=== PATIENT | male | born 1955 | race American Indian/Alaskan Native ===

== ENCOUNTER 2021-12-24 21:39 | Inpatient (IN) | payer MEDICARE ==
[2021-12-24] MEDS ORDERED: SODIUM CHLORIDE 0.9% 1000 ML 1,000 ML IV ONE (21:57)
[2021-12-24] MEDS ORDERED: MORPHINE 4 MG/1 ML INJ IV ONE (21:57)
[2021-12-24] MEDS ORDERED: ONDANSETRON 4 MG/2 ML INJ IV ONE (21:57)
[2021-12-24 23:26] LABS: Basophils % (Auto) 0.3 % (0.0-1.8); Eosinophils # (Auto) 0.1 K/mm3 (0.0-0.4); Hematocrit 40.6 % (35.5-45.6); Hemoglobin 13.6 gm/dl (11.8-15.2); Lymphocytes # (Auto) 0.7 K/mm3 (1.2-5.4); Lymphocytes % (Auto) 7.4 % (13.4-35.0); Mean Corpuscular HGB Conc 33 % (32-34); Mean Corpuscular Volume 92 fl (84-94); Monocytes # (Auto) 0.7 K/mm3 (0.0-0.8); Monocytes % (Auto) 6.9 % (0.0-7.3); Platelet Count 324 K/mm3 (140-440); Red Blood Count 4.43 M/mm3 (3.65-5.03); Red Cell Distribution Width 13.5 % (13.2-15.2)
[2021-12-24 23:36] LABS: Alanine Aminotransferase 13 units/L (7-56); Albumin 4.2 g/dL (3.9-5); Blood Urea Nitrogen 6 mg/dL (9-20); Calcium 8.9 mg/dL (8.4-10.2); Hemolysis Index 18
[2021-12-24 23:37] LABS: BUN/Creatinine Ratio 9; Bilirubin,Direct < 0.2 mg/dL (0-0.2)
--- NOTE | 2021-12-25 01:01 | Cat Scan Report ---
CT ABDOMEN AND PELVIS WITH CONTRAST INDICATION / CLINICAL INFORMATION: pain. TECHNIQUE: Axial CT images were obtained through the abdomen and pelvis after IV contrast. All CT sc ans at this location are performed using CT dose reduction for ALARA by means of automated exposure c ontrol. COMPARISON: None available. FINDINGS: LOWER CHEST: Fibrotic changes/honeycombing noted bilaterally within the lower lobes as well as medial left upper lobe. No acute findings within the lower chest. LIVER: Mild hepatic steatosis suggested. Subcentimeter focus of hypoattenuation within segment IV and segment II favored to reflect small cysts, these are too small to further characterize. Additional s ubcentimeter focus of hypoattenuation present segment V. GALLBLADDER / BILE DUCTS: No significant abnormality. Biliary ducts grossly unremarkable. SPLEEN: No significant abnormality. PANCREAS: Main pancreatic duct is upper limits of normal in size. The pancreas demonstrates no focal mass. ADRENALS: No significant abnormality. KIDNEYS/URETERS: 1-2 mm stone lower pole left kidney. Kidneys are otherwise unremarkable. STOMACH / DUODENUM / SMALL BOWEL: Right inguinal hernia is demonstrated containing a moderate amount of bowel. Additional fluid present within the hernia sac. The contained bowel maintains wall enhancem ent. There may be minimal fat stranding at the level of the inguinal ligament suggesting may be early incarceration. Proximal small bowel is upper limits of normal in size to minimally distended. COLON: Moderate stool throughout APPENDIX: No significant abnormality. PERITONEUM: No free air or free fluid are present within the abdomen or pelvis. LYMPH NODES: No significant adenopathy. AORTA / ARTERIES: No significant abnormality. IVC / VEINS: No significant abnormality. URINARY BLADDER: No significant abnormality. REPRODUCTIVE ORGANS: No significant abnormality. SKELETAL SYSTEM: Degenerative changes of the lumbar spine appear moderate. No acute osseous findings. Pars defect at L3-4. ADDITIONAL ABDOMINAL/PELVIC FINDINGS: None. IMPRESSION: 1. Early incarceration of right inguinal hernia without devascularization of bowel wall. Proximal obs tructive changes of the small bowel additionally are present. Signer Name: Prateek Fierro II, MD Signed: 12/25/2021 12:56 AM Workstation Name: [id number]
--- NOTE | 2021-12-25 01:37 | Emergency Department Report ---
ED Abdominal Pain HPI - General Chief Complaint: Abdominal Pain Stated Complaint: HERNIA PUI?: No Time Seen by Provider: 12/24/21 21:55 Source: patient, EMS Mode of arrival: Stretcher Limitations: No Limitations - History of Present Illness Initial Comments: HERNIA PAIN AND SWELLING had hernia for few years but today is worse nausea and vomiting -: Gradual, hour(s) Location: R flank Severity: severe Severity scale (0 -10): 10 Quality: aching Worsens With: nothing - Related Data Allergies Allergy/AdvReac Type Severity Reaction Status Date / Time No Known Allergies Allergy Verified 12/24/21 22:07 ED Review of Systems ROS: Stated complaint: HERNIA Other details as noted in HPI Constitutional: denies: chills, fever Eyes: denies: eye pain, eye discharge, vision change ENT: denies: ear pain, throat pain Respiratory: denies: cough, shortness of breath, wheezing Cardiovascular: denies: chest pain, palpitations Endocrine: no symptoms reported Gastrointestinal: denies: abdominal pain, nausea, diarrhea Genitourinary: denies: urgency, dysuria Musculoskeletal: denies: back pain, joint swelling, arthralgia Skin: denies: rash, lesions Neurological: denies: headache, weakness, paresthesias Psychiatric: denies: anxiety, depression Hematological/Lymphatic: denies: easy bleeding, easy bruising ED Past Medical Hx - Past Medical History Previous Medical History?: No Hx Hypertension: No ED Physical Exam - General Limitations: No Limitations General appearance: alert, in distress - Head Head exam: Present: atraumatic, normocephalic - Eye Eye exam: Present: normal appearance - ENT ENT exam: Present: mucous membranes moist - Neck Neck exam: Present: normal inspection - Respiratory Respiratory exam: Present: normal lung sounds bilaterally. Absent: respiratory distress - Cardiovascular Cardiovascular Exam: Present: regular rate, normal rhythm. Absent: systolic murmur, diastolic murmur, rubs, gallop - GI/Abdominal GI/Abdominal exam: Present: normal bowel sounds (`), hernia (Right ingionao scrotal hernia , firm tender with no impulse on cough ) - Rectal Rectal exam: Present: deferred - Extremities Exam Extremities exam: Present: normal inspection - Back Exam Back exam: Present: normal inspection - Neurological Exam Neurological exam: Present: alert, oriented X3 - Psychiatric Psychiatric exam: Present: normal affect, normal mood - Skin Skin exam: Present: warm, dry, intact, normal color. Absent: rash ED Course Vital Signs 12/24/21 21:56 Temperature 98 F Pulse Rate 68 Respiratory 16 Rate Blood Pressure 126/74 [Right] O2 Sat by Pulse 98 Oximetry ED Medical Decision Making - Lab Data Result diagrams: 12/24/21 22:51 12/24/21 22:51 Critical care attestation.: If time is entered above; I have spent that time in minutes in the direct care of this critically ill patient, excluding procedure time. ED Disposition Clinical Impression: Inguinal hernia with strangulation Disposition: ADMITTED INPATIENT Is pt being admited?: Yes Does the pt Need Aspirin: No Condition: Stable
[2021-12-25] MEDS ORDERED: ERTAPENEM 1 GM in SODIUM CHLORIDE 0.9% 50 ML IV ONE (01:38)
[2021-12-25] MEDS ORDERED: ONDANSETRON 4 MG/2 ML INJ IV PRN (02:53)
[2021-12-25] MEDS ORDERED: MORPHINE 4 MG/1 ML INJ IV PRN (02:53)
[2021-12-25] MEDS ORDERED: MORPHINE 2 MG/1 ML INJ IV PRN (02:53)
[2021-12-25] MEDS ORDERED: ACETAMINOPHEN 325 MG TAB PO PRN (02:53)
--- NOTE | 2021-12-25 03:00 | History and Physical Report ---
History of Present Illness Date of examination: 12/25/21 Date of admission: 12/25/2021 Chief complaint: Abdominal Pain History of present illness: 66-year-old -[place] male with no significant past medical history except for right inguinal hernia which has been present for a few years. Hernia has been reducible on most occasions. However, over the past few days he has been having significant pain in the right groin. Hernia has gotten swollen and has become larger and unreducible. Patient has had some nausea and vomiting. He denies any diarrhea, no chest pain or shortness of breath, no fever or chills. Work-up in the emergency room, lab did not reveal any significant abnormality. CT of the abdomen and pelvis revealed early incarceration of the right inguinal hernia without devascularization of the bowel wall. Proximal obstructive changes of the small bowel additionally are present. General surgeon on-call has been consulted and notified by the ER physician. Patient has received IV analgesic medication, IV antibiotics and IV fluid. Past History Past Medical History: No medical history Past Surgical History: Other (Abdominal Surgery) Social history: no significant social history Family history: no significant family history Medications and Allergies Allergies Allergy/AdvReac Type Severity Reaction Status Date / Time No Known Allergies Allergy Verified 12/24/21 22:07 Review of Systems Constitutional: no fever, no chills Ears, nose, mouth and throat: no nasal congestion, no sore throat Cardiovascular: no chest pain, no palpitations Respiratory: no cough, no shortness of breath Gastrointestinal: abdominal pain, nausea, vomiting, no diarrhea Genitourinary Male: no dysuria, no hematuria, no flank pain Musculoskeletal: no neck pain, no low back pain Integumentary: no rash, no pruritis Neurological: no headaches, no confusion Psychiatric: no anxiety, no depression Endocrine: no polyphagia, no polydipsia, no polyuria, no nocturia Exam - Constitutional Vitals: Temp Pulse Resp BP Pulse Ox 98 F 68 16 126/74 98 12/24/21 21:56 12/24/21 21:56 12/24/21 21:56 12/24/21 21:56 12/24/21 21:56 General appearance: Present: no acute distress, well-nourished - EENT Eyes: Present: PERRL, EOM intact. Absent: scleral icterus ENT: hearing intact, clear oral mucosa, dentition normal - Neck Neck: Present: supple, normal ROM - Respiratory Respiratory effort: normal Respiratory: bilateral: CTA - Cardiovascular Rhythm: regular Heart Sounds: Present: S1 & S2. Absent: gallop, systolic murmur, diastolic murmur, rub, click - Extremities Extremities: no ischemia, pulses intact, pulses symmetrical, No edema, normal temperature, normal color, Full ROM Peripheral Pulses: within normal limits - Abdominal General gastrointestinal: Present: soft, non-tender, tender, normal bowel sounds, hernia (Right reducible inguinal hernia,Mildly tender to touch.), other (Scar of old surgery in midline.). Absent: non-distended - Integumentary Integumentary: Present: clear, warm, dry, normal turgor. Absent: rash - Musculoskeletal Musculoskeletal: strength equal bilaterally - Psychiatric Psychiatric: appropriate mood/affect, intact judgment & insight, memory intact, cooperative - Neurologic Neurologic: CNII-XII intact, no focal deficits, moves all extremities Results - Labs CBC & Chem 7: 12/24/21 22:51 12/24/21 22:51 Labs: Abnormal lab results 12/24/21 12/24/21 Range/Units 22:51 22:51 Lymph % (Auto) 7.4 L (13.4-35.0) % Lymph # (Auto) 0.7 L (1.2-5.4) K/mm3 Seg Neutrophils % 84.4 H (40.0-70.0) % Seg Neutrophils # 8.5 H (1.8-7.7) K/mm3 BUN 6 L (9-20) mg/dL Creatinine 0.7 L (0.8-1.3) mg/dL Glucose 101 H (75-100) mg/dL Total Creatine Kinase 256 H (55-170) units/L Assessment and Plan Assessment: 1.Abdominal Pain 2.Right Inguinal hernia- reducible Plan: 1. Patient admitted and placed on IV fluid and analgesic medication. He will be kept NPO. 2. Consult placed to general surgeon for evaluation and recommendations. DVT Prophylaxis: Sequential compression device Code Status: Full Code
--- NOTE | 2021-12-25 09:28 | Consultation ---
History of Present Illness Consult date: 12/25/21 Reason for consult: abdominal pain - History of present illness History of present illness: 66-year-old -[place] male with no significant past medical history except for right inguinal hernia which has been present for a few years. Hernia has been reducible on most occasions. However, over the past few days he has been having significant pain in the right groin. 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 He has a low midline incision on physical exam. He has never had a colonosocpy in his adult life. He does not have a fh for crc. Hernia has gotten swollen and has become larger and unreducible. Patient has had some nausea and vomiting. He denies any diarrhea, no chest pain or shortness of breath, no fever or chills. Work-up in the emergency room, lab did not reveal any significant abnormality. CT of the abdomen and pelvis revealed early incarceration of the right inguinal hernia without devascularization of the bowel wall. Proximal obstructive changes of the small bowel additionally are present. General surgeon been consulted to manage the hernia and sbo. Patient has received IV analgesic medication, IV antibiotics and IV fluid. Thru the night pt noted that the hernia reduced. He is constipated however. His pain is better there is no further nausea he may have passed gas. Past History Past Medical History: No medical history Past Surgical History: Other (Abdominal Surgery) Social history: no significant social history Family history: no significant family history Medications and Allergies Allergies Allergy/AdvReac Type Severity Reaction Status Date / Time No Known Allergies Allergy Verified 12/24/21 22:07 Home Medications Medication Instructions Recorded Confirmed Last Taken Type Docusate Sodium [Colace] 300 mg PO DAILY PRN 12/25/21 12/25/21 12/24/21 History Ibuprofen [Motrin] 800 mg PO Q812H PRN 12/25/21 12/25/21 12/24/21 18:00 History Mv-Mins/Folic Acid/Guarana/Caf 1 tab PO QDAY 12/25/21 12/25/21 12/24/21 History [One Daily Tablet] Active Meds: Active Medications Acetaminophen (Acetaminophen 325 Mg Tab) 650 mg PO Q4H PRN PRN Reason: Pain MILD(1-3)/Fever >100.5/MCCARTHY Morphine Sulfate (Morphine 2 Mg/1 Ml Inj) 2 mg IV Q4H PRN PRN Reason: Pain, Moderate (4-6) Morphine Sulfate (Morphine 4 Mg/1 Ml Inj) 4 mg IV Q4H PRN PRN Reason: Pain , Severe (7-10) Ondansetron HCl (Ondansetron 4 Mg/2 Ml Inj) 4 mg IV Q8H PRN PRN Reason: Nausea And Vomiting Sodium Chloride (Sodium Chloride 0.9% 10 Ml Flush Syringe) 10 ml IV BID STEFANIE Sodium Chloride (Sodium Chloride 0.9% 10 Ml Flush Syringe) 10 ml IV PRN PRN PRN Reason: LINE FLUSH Exam Vital Signs Temp Pulse Resp BP Pulse Ox 98 F 68 16 126/74 98 12/24/21 21:56 12/24/21 21:56 12/24/21 21:56 12/24/21 21:56 12/24/21 21:56 - General physical appearance Positive: well developed, no distress - Eyes Positive: PERRL - Neck Positive: no masses, no bruits, trachea midline - Respiratory Positive: normal expansion - Cardiovascular Rhythm: regular - Extremities Extremities: no ischemia, No edema - Abdomen Abdomen: Present: soft, bowel sounds normal, other (Well-healed midline incision without evidence of ventral hernia in the lower half of the abdomen). Absent: tender, distended, masses, rebound, guarding, rigid - Neurologic Neurologic: alert and oriented to time, place and person, motor strength and sensation are grossly intact, CN II-XII intact Results - Labs 12/24/21 22:51 12/24/21 22:51 Abnormal lab results 12/24/21 12/24/21 Range/Units 22:51 22:51 Lymph % (Auto) 7.4 L (13.4-35.0) % Lymph # (Auto) 0.7 L (1.2-5.4) K/mm3 Seg Neutrophils % 84.4 H (40.0-70.0) % Seg Neutrophils # 8.5 H (1.8-7.7) K/mm3 BUN 6 L (9-20) mg/dL Creatinine 0.7 L (0.8-1.3) mg/dL Glucose 101 H (75-100) mg/dL Total Creatine Kinase 256 H (55-170) units/L Diabetes panel 12/24/21 Range/Units 22:51 Sodium 141 (137-145) mmol/L Potassium 4.1 (3.6-5.0) mmol/L Chloride 104.6 (98-107) mmol/L Carbon Dioxide 25 (22-30) mmol/L BUN 6 L (9-20) mg/dL Creatinine 0.7 L (0.8-1.3) mg/dL Glucose 101 H (75-100) mg/dL Calcium 8.9 (8.4-10.2) mg/dL AST 19 (5-40) units/L ALT 13 (7-56) units/L Alkaline Phosphatase 76 (35-129) units/L Total Protein 7.3 (6.3-8.2) g/dL Albumin 4.2 (3.9-5) g/dL Calcium panel 12/24/21 Range/Units 22:51 Calcium 8.9 (8.4-10.2) mg/dL Albumin 4.2 (3.9-5) g/dL Pituitary panel 12/24/21 Range/Units 22:51 Sodium 141 (137-145) mmol/L Potassium 4.1 (3.6-5.0) mmol/L Chloride 104.6 (98-107) mmol/L Carbon Dioxide 25 (22-30) mmol/L BUN 6 L (9-20) mg/dL Creatinine 0.7 L (0.8-1.3) mg/dL Glucose 101 H (75-100) mg/dL Calcium 8.9 (8.4-10.2) mg/dL Adrenal panel 12/24/21 Range/Units 22:51 Sodium 141 (137-145) mmol/L Potassium 4.1 (3.6-5.0) mmol/L Chloride 104.6 (98-107) mmol/L Carbon Dioxide 25 (22-30) mmol/L BUN 6 L (9-20) mg/dL Creatinine 0.7 L (0.8-1.3) mg/dL Glucose 101 H (75-100) mg/dL Calcium 8.9 (8.4-10.2) mg/dL Total Bilirubin 0.30 (0.1-1.2) mg/dL AST 19 (5-40) units/L ALT 13 (7-56) units/L Alkaline Phosphatase 76 (35-129) units/L Total Protein 7.3 (6.3-8.2) g/dL Albumin 4.2 (3.9-5) g/dL Assessment and Plan Pt with spontaneous reduction of incarcerated small bowel. Plan to advance to [facility] now and potentially discharge on full liquids. Pt should also try a bowel prep, beginning with TWE to address his constipation. Plan to return for definitive repair as an outpt next week on the robotic platform.
[2021-12-25] MEDS ORDERED: MAGNESIUM CITRATE 300 ML ORAL LIQD PO ONE (11:47)
--- NOTE | 2021-12-25 11:49 | Event Note ---
Date: 12/25/21 Patient seen at bedside. He reports being pain-free and reduction of his hernia. He has not had any bowel movement since he has been here. He denies nausea, vomiting and has passed flatus. He was seen by general surgery who recommended outpatient repair. We will observe patient overnight to see if he can tolerate an oral diet and passing bowel movement prior to discharge.
[2021-12-25] MEDS: POLYETHYLENE GLYCOL 3350 17 GM POWDER PO SCH (12:47)
[2021-12-25] MEDS: LACTATED RINGERS 1,000 ML IV SCH (12:47)
[2021-12-26 04:42] VITALS: BP 125/88
[2021-12-26 07:06] LABS: Basophils # (Auto) 0.1 K/mm3 (0.0-0.1); Basophils % (Auto) 0.4 % (0.0-1.8); Eosinophils # (Auto) 0.1 K/mm3 (0.0-0.4); Eosinophils % (Auto) 0.4 % (0.0-4.3); Hematocrit 39.9 % (35.5-45.6); Hemoglobin 13.1 gm/dl (11.8-15.2); Lymphocytes # (Auto) 1.5 K/mm3 (1.2-5.4); Lymphocytes % (Auto) 7.8 % (13.4-35.0); Mean Corpuscular HGB Conc 33 % (32-34); Mean Corpuscular Volume 91 fl (84-94); Monocytes # (Auto) 1.6 K/mm3 (0.0-0.8); Monocytes % (Auto) 8.5 % (0.0-7.3); Platelet Count 305 K/mm3 (140-440); Red Blood Count 4.38 M/mm3 (3.65-5.03); Red Cell Distribution Width 13.8 % (13.2-15.2)
[2021-12-26 07:24] LABS: Blood Urea Nitrogen 7 mg/dL (9-20); Calcium 8.8 mg/dL (8.4-10.2); Hemolysis Index 5
[2021-12-26 07:27] LABS: BUN/Creatinine Ratio 10
--- NOTE | 2021-12-26 08:30 | Progress Note ---
Assessment and Plan Pt with spontaneous reduction of incarcerated small bowel. Plan to advance to [facility] now and potentially discharge on full liquids. Pt with good response to bowel prep he agrees to go home today. Plan to return for definitive repair as an outpt next week on the robotic platform. Subjective Date of service: 12/26/21 Patient Reports: Positive: no new complaints, still having pain, no bowel movement (Patient with bowel movement today he continues to be pain-free. Okay to discharge patient on a soft diet.) Objective Vital Signs - 12hr 12/25/21 12/26/21 22:00 04:14 Temperature 97.9 F 98.7 F Pulse Rate 87 74 Respiratory 20 18 Rate Blood Pressure 125/88 Blood Pressure 133/92 [Right] O2 Sat by Pulse 98 94 Oximetry - Labs 12/26/21 06:49 12/26/21 06:49 Diabetes panel 12/26/21 Range/Units 06:49 Sodium 134 L (137-145) mmol/L Potassium 3.6 (3.6-5.0) mmol/L Chloride 99.9 (98-107) mmol/L Carbon Dioxide 22 (22-30) mmol/L BUN 7 L (9-20) mg/dL Creatinine 0.7 L (0.8-1.3) mg/dL Glucose 97 (75-100) mg/dL Calcium 8.8 (8.4-10.2) mg/dL Calcium panel 12/26/21 Range/Units 06:49 Calcium 8.8 (8.4-10.2) mg/dL Pituitary panel 12/26/21 Range/Units 06:49 Sodium 134 L (137-145) mmol/L Potassium 3.6 (3.6-5.0) mmol/L Chloride 99.9 (98-107) mmol/L Carbon Dioxide 22 (22-30) mmol/L BUN 7 L (9-20) mg/dL Creatinine 0.7 L (0.8-1.3) mg/dL Glucose 97 (75-100) mg/dL Calcium 8.8 (8.4-10.2) mg/dL Adrenal panel 12/26/21 Range/Units 06:49 Sodium 134 L (137-145) mmol/L Potassium 3.6 (3.6-5.0) mmol/L Chloride 99.9 (98-107) mmol/L Carbon Dioxide 22 (22-30) mmol/L BUN 7 L (9-20) mg/dL Creatinine 0.7 L (0.8-1.3) mg/dL Glucose 97 (75-100) mg/dL Calcium 8.8 (8.4-10.2) mg/dL
[2021-12-26] MEDS: LACTATED RINGERS 1,000 ML IV SCH (08:52)
--- NOTE | 2021-12-26 09:20 | Discharge Summary ---
Providers - Providers Date of Admission: 12/25/21 02:53 Date of discharge: 12/26/21 Attending physician: CHOLO SAMPSON MD 12/25/21 01:39 Consult to Physician [CONS] Stat Comment: Dr. Roberts spoke with Dr. Cisneros @ [phone] Consulting Provider: JON CISNEROS Physician Instructions: Reason For Exam: incarcerated hernia Primary care physician: TREVER ROMAN Hospitalization Reason for admission: incarcerated hernia Condition: Stable Hospital course: Patient is a 66-year-old male with history of right inguinal hernia who presented with severe groin pain and constipation. CT of the abdomen pelvis revealed early incarceration of the right inguinal hernia. General surgery was consulted and the patient hernia reduced spontaneously. Patient was able to tolerate diet and have bowel movements. He was recommended for outpatient repair of hernia early next week. Patient made aware and discharged home. Disposition: 01 HOME / SELF CARE / HOMELESS Final Discharge Diagnosis (Prints w/discharge instructions): Incarcerated right inguinal hernia, resolved. Abdominal pain Time spent for discharge: 45 minutes Core Measure Documentation - Palliative Care Palliative Care/ Comfort Measures: Not Applicable - Core Measures Any of the following diagnoses?: none Exam - Physical Exam Narrative exam: GENERAL: Thin male. Resting in bed in no acute distress. HEENT: Normocephalic. Atraumatic. NECK: Supple. CHEST/LUNGS: CTAB on room air HEART/CARDIOVASCULAR: RRR. No murmur, rubs or gallops appreciated. ABDOMEN: +BS. NT/ND. : R groin w/ hernia reduced. NT to palpation. SKIN: No rashes noted. NEURO: No focal motor deficit. Follows all commands. MUSCULOSKELETAL: No joint effusion EXTREMITIES: No cyanosis, clubbing or edema. PSYCH: Cooperative. - Constitutional Vitals: Temp Pulse Resp BP Pulse Ox 98.7 F 74 18 125/88 94 12/26/21 04:14 12/26/21 04:14 12/26/21 04:14 12/26/21 04:14 12/26/21 04:14 Plan Care Plan Goals: Please call to schedule an appointment with Dr. Cisneros for repair of your hernia for , January 01. Until that time please resume a full liquid diet. If you have return of your symptoms, please report back to the emergency department. Follow up with: TREVER ROMAN MD [Primary Care Provider] - 7 Days JON CISNEROS MD [Staff Physician] - 01/01/22 Prescriptions: polyethylene glycoL 3350 [Miralax 3350] 17 gm PO QDAY 30 Days #30 [email or web address]
[2021-12-26] MEDS: POLYETHYLENE GLYCOL 3350 17 GM POWDER PO SCH (09:24)
== END 2021-12-26 11:51 | disposition home or self-care (01) | DRG 395 ==
LOC: ED 21:39 → 3A 12-25 02:53
PROVIDERS: ADMIT Internal Medicine Geriatric Medicine; ATTEND Student in an Organized Health Care Education/Training Program
DX: K40.30 Unilateral inguinal hernia, with obstruction, without gangrene, not specified as recurrent (principal)
CPT/HCPCS: 36415; 74177; 80048; 80076; 82150; 82550; 83690; 85025; 86140; 96365; 96375; 99285; 99406; G0378; J1335; J2270; J2405; J7030; J7120; Q9967

== ENCOUNTER 2022-01-01 06:39 | Day surgery (SDC) | payer MEDICARE ==
[~2022-01-01 06:39] MED LIST: ceFAZolin/STERILE WATER 2 GM/20 ML SYRINGE IV SCH
[2022-01-01] MEDS ORDERED: LIDOCAINE 1%/EPINEPHRINE 1:100,000 VIAL (20 ML) INFILTRATI ONE ×2 (07:36→10:47)
[2022-01-01] MEDS ORDERED: BUPIVACAINE/PF (0.5%) 5 MG/1 ML 30 ML VIAL INFILTRATI ONE ×2 (07:36→10:46)
--- NOTE | 2022-01-01 07:41 | Anesthesia Day of Surgery ---
Anesthesia Day of Surgery - Day of Surgery Patient Examined: Yes Patient H&P Reviewed: Yes Patient is NPO: Yes
--- NOTE | 2022-01-01 07:42 | Anesthesia Consultation ---
Anesthesia Consult and Med Hx Date of service: 01/01/22 - Airway Anesthetic Teeth Evaluation: Partials ROM Head & Neck: Adequate Mental/Hyoid Distance: Adequate Mallampati Class: Class II Intubation Access Assessment: Good - Pre-Operative Health Status ASA Pre-Surgery Classification: ASA2 Proposed Anesthetic Plan: General - Pulmonary Hx Smoking: Yes (SMOKES 2 CIGARETTES/DAY) Hx Asthma: No COPD: No Hx Pneumonia: No Hx Sleep Apnea: No - Cardiovascular System Hx Hypertension: Yes (CONTROLLED WITH MEDICATION) - Central Nervous System Hx Psychiatric Problems: No - Hematic Hx Anemia: No Hx Sickle Cell Disease: No - Other Systems Hx Alcohol Use: Yes (6 PACK BEER/WEEK) Hx Substance Use: Yes (SMOKES MARIJUANA) Hx Cancer: No Hx Obesity: No
[2022-01-01] MEDS ORDERED: LACTATED RINGERS 1,000 ML IV SCH (08:00)
[2022-01-01] MEDS ORDERED: ONDANSETRON 4 MG/2 ML INJ IV NR (08:00)
[2022-01-01] MEDS ORDERED: ACETAMINOPHEN 325 MG TAB PO NR (08:00)
[2022-01-01] MEDS ORDERED: MAGNESIUM OXIDE 400 MG TAB PO NR (08:00)
[2022-01-01] MEDS ORDERED: CELECOXIB 200 MG CAP PO NR (08:00)
[2022-01-01] MEDS ORDERED: HYDROmorphone 0.5 MG/0.5 ML INJ IV PRN (08:00)
[2022-01-01] MEDS ORDERED: LIDOCAINE MPF (2%) 20 MG/1 ML VIAL 5 ML ONE (09:42)
[2022-01-01] MEDS ORDERED: ROCURONIUM 50 MG/5 ML INJ IV ONE (09:42)
[2022-01-01] MEDS ORDERED: fentaNYL 100 MCG/2 ML INJ ONE (09:42)
[2022-01-01] MEDS ORDERED: PHENYLEPHRINE/NS 1,000 MCG/10 ML SYRINGE (OR USE) IV ONE (09:42)
[2022-01-01] MEDS ORDERED: propofoL 200 MG/20 ML VIAL IV ONE (09:43)
[2022-01-01] MEDS ORDERED: dexAMETHasone 20 MG/5 ML VIAL ONE (09:44)
[2022-01-01] MEDS ORDERED: ONDANSETRON 4 MG/2 ML INJ ONE (09:44)
[2022-01-01] MEDS ORDERED: ePHEDrine SULFATE 50 MG/1 ML INJ ONE (10:15)
[2022-01-01] MEDS ORDERED: SODIUM CHLORIDE 0.9% IRR 1,500 ML BOTTLE IR ONE (10:47)
[2022-01-01] MEDS ORDERED: HYDROmorphone 0.5 MG/0.5 ML INJ ONE (11:10)
[2022-01-01] MEDS ORDERED: GLYCOPYRROLATE 0.4 MG/2 ML INJ ONE (12:38)
[2022-01-01] MEDS ORDERED: NEOSTIGMINE 10MG/10 ML INJ MDV ONE (12:38)
[2022-01-01] MEDS ORDERED: KETOROLAC 30 MG/1 ML INJ ONE (12:39)
[2022-01-01] MEDS: HYDROmorphone 0.5 MG/0.5 ML INJ IV PRN ×2 (13:13→13:23)
[2022-01-01] MEDS ORDERED: hydrALAZINE 20 MG/1 ML INJ ONE (13:21)
--- NOTE | 2022-01-01 13:36 | Short Stay Summary ---
Short Stay Documentation Date of service: 01/01/22 - History H&P: obtained from office - Allergies and Medications Current Medications: Allergies No Known Allergies Allergy (Verified 12/29/21 16:24) Home Medications Medication Instructions Recorded Confirmed Last Taken Type Docusate Sodium [Colace CAP] 100 mg PO DAILY PRN 12/25/21 01/01/22 12/31/21 History Ibuprofen [Motrin 800 MG tab] 800 mg PO PRN PRN 12/25/21 01/01/22 12/29/21 History Bismuth Subsalicylate [Pepto 262 mg PO ONCE 01/01/22 01/01/22 12/31/21 23:30 History Bismol] Active Medications Acetaminophen (Acetaminophen 325 Mg Tab) 650 mg PO ONCE NR Stop: 01/01/22 17:00 Last Admin: 01/01/22 08:36 Dose: 650 mg Cefazolin Sodium (Cefazolin/Sterile Water 2 Gm/20 Ml Syringe) 2 gm IV PREOP STEFANIE Stop: 01/01/22 23:00 Celecoxib (Celecoxib 200 Mg Cap) 200 mg PO PREOP NR Stop: 01/01/22 17:00 Last Admin: 01/01/22 08:36 Dose: 200 mg Hydralazine HCl (Hydralazine 20 Mg/1 Ml Inj) 5 mg IV ONCE PRN PRN Reason: Hypertension Hydromorphone HCl (Hydromorphone 0.5 Mg/0.5 Ml Inj) 0.25 mg IV Q10MIN PRN PRN Reason: Pain, Moderate (4-6) Stop: 01/01/22 17:00 Hydromorphone HCl (Hydromorphone 0.5 Mg/0.5 Ml Inj) 0.5 mg IV Q10MIN PRN PRN Reason: Pain , Severe (7-10) Stop: 01/01/22 17:00 Last Admin: 01/01/22 13:23 Dose: 0.5 mg Lactated Ringer's (Lactated Ringers) 1,000 mls @ 100 mls/hr IV DIRECT STEFANIE Last Admin: 01/01/22 07:41 Dose: 100 mls/hr Magnesium Oxide (Magnesium Oxide 400 Mg Tab) 400 mg PO ONCE NR Stop: 01/01/22 17:00 Last Admin: 01/01/22 08:36 Dose: 400 mg Methocarbamol (Methocarbamol 750 Mg Tab) 1,500 mg PO ONCE NR Stop: 01/01/22 17:00 Last Admin: 01/01/22 08:36 Dose: 1,500 mg Ondansetron HCl (Ondansetron 4 Mg/2 Ml Inj) 4 mg IV ONCE NR Stop: 01/01/22 17:00 - Brief post op/procedure progress note Date of procedure: 01/01/22 Pre-op diagnosis: right inguinal hernia Post-op diagnosis: same Procedure: robotic right inguinal hernia repair with mesh and yeni Anesthesia: GETA Findings: Midline adhesions. Large right inguinal hernia, no left inguinal hernia Surgeon: JON ODOM Test Lead: TEREAZ WHITE Estimated blood loss: minimal Pathology: none Condition: stable - Disposition Condition at discharge: Good Disposition: 01 HOME / SELF CARE / HOMELESS Short Stay Discharge Plan Activity: other (no heavy lifting) Weight Bearing Status: Full Weight Bearing Diet: regular Wound: open to air Follow up with: PRIMARY MD MIRIAM [Primary Care Provider] - 7 Days JON ODOM MD [Staff Physician] - 7 Days Prescriptions: HYDROcodone/APAP 7.5-325 [Isleta 7.5/325] 1 each PO Q6HR PRN #14 tablet PRN Reason: Pain
--- NOTE | 2022-01-01 13:48 | Operative Report ---
Operative Report Operative Report: Date of procedure: 01/01/22 Preop diagnosis: Right inguinal hernia with incarceration Postop diagnosis: Same intra-abdominal adhesions Procedure: Robotic right inguinal hernia repair with mesh and lysis of adhesions Surgeon: Dr. Cisneros Managed Care Manager: Anesthesia: General tracheal anesthesia Estimated blood loss: 50 cc Specimen: None Findings: Patient is taken to the OR and timeouts and consents are confirmed to be on the chart and valid. Patient received 2 g of Ancef IV. She is under general endotracheal anesthesia. The abdomen is prepped with ChloraPrep and draped in a sterile fashion. A 5 mm incision is made in the left upper quadrant and a Veress needle was used to gain access peritoneal cavity. Needle was then removed and the 5 mm Visiport is established at this position. Inspection of the abdomen confirms a right inguinal hernia hernia. Adhesions to the midline are encountered. To 8 mm ports were established 1 in the right and left hypogastric area. Laparoscopic lysis of adhesions is done with electrocautery and EndoShears. An 8 mm port is an established just above the umbilicus. The robot is then docked. Cautery scissors is used in the right hand and the bipolar grasper in the left hand. The peritoneum is incised and the properitoneal space is dissected over the right inguinal area. An extensive dissection is undertaken for reduction of the inguinal hernia. The hernia sac is dissected down to the level of the iliac vessels. Dissection is also taken from lateral to medial across the midline. A 10 cm Ovatec mesh is then selected for the repair. 2-0 Vicryl suture is used to suture the medial and lateral corners of the mesh in place. The same stitch is used to suture the upper edge of the mesh in place. A 2 O V lock is then used to close the peritoneal opening. Several holes in the peritoneum will also present and are closed with the same 2 OV lock suture. When this was completed sponge counts are noted to be correct the robot is undocked. The 8 mm supraumbilical port is closed with a Yusuf Espino system and an 0 Vicryl suture. CO2 is allowed to exit the abdomen all ports are removed skin is closed with 4-0 Monocryl and Dermabond patient taught procedure well.
[2022-01-01] MEDS ORDERED: hydrALAZINE 20 MG/1 ML INJ IV NR (14:00)
--- NOTE | 2022-01-01 14:08 | Post Anesthesia Evaluation ---
- Post Anesthesia Evaluation Patient Participated: Yes Airway Patent: Yes Stable Respiratory Function: Yes Nausea/Vomiting: No Temp > 96.8F: Yes Pain Manageable: Yes Adequeate Hydration: Yes Anesthesia Complications: No Block Receding Appropriately: Not Applicable Patient on Ventilator: No
[2022-01-01 14:55] VITALS: BP 145/81
== END 2022-01-01 16:30 | disposition home or self-care (01) ==
LOC: OR 06:39
PROVIDERS: ATTEND Surgery
DX: K40.30 Unilateral inguinal hernia, with obstruction, without gangrene, not specified as recurrent (principal); I10 Essential (primary) hypertension; M19.90 Unspecified osteoarthritis, unspecified site; F17.210 Nicotine dependence, cigarettes, uncomplicated; Z79.899 Other long term (current) drug therapy; Z98.41 Cataract extraction status, right eye; Z98.42 Cataract extraction status, left eye; Z72.89 Other problems related to lifestyle; Z98.890 Other specified postprocedural states
CPT/HCPCS: 49650; C1781; J0360; J0690; J1100; J1170; J1815; J2370; J2405; J2704; J2710; J3010; J3490; J7120; J1885